=== PATIENT | male | born 1960 | race Caucasian/White ===

== ENCOUNTER 2018-03-19 21:05 | Emergency (ER) | payer BC ==
[2018-03-19] MEDS ORDERED: Adacel (T-DAP) 0.5 ML VIAL ONE (21:14)
[2018-03-19] MEDS ORDERED: Lidocaine 1% w/Epinephrine 1:100K 20 ML VIAL ONE (21:14)
[2018-03-19] MEDS ORDERED: Bacitracin Zinc 1 Packet ONE (21:47)
== END 2018-03-19 21:58 | disposition home or self-care (01) ==
LOC: SCSER 21:05
DX: S81.811A Laceration without foreign body, right lower leg, initial encounter (principal); W45.8XXA Other foreign body or object entering through skin, initial encounter; Y93.18 Activity, surfing, windsurfing and boogie boarding
CPT/HCPCS: 12032; 90471; 90715; J2001